=== PATIENT | male | born 1960 | race Caucasian/White ===

== ENCOUNTER 2019-11-26 07:42 | Day surgery (SDC) | payer OTHER, SELFPAY ==
[2019-11-25 09:08] VITALS: BMI 25.5
[2019-11-26 08:01] VITALS: BP 154/108; PULSE 88; RESP 20; TEMP 36.4; O2SAT 100
--- NOTE | 2019-11-26 08:24 | ANES.PREANES ---
Pre-Anesthetic Assessment Pre-Anesthetic Assessment: Height/Weight: Height 1.73 m Weight 76.204 kg Temp Pulse Resp BP Pulse Ox 97.5 F L 88 20 H 154/108 100 11/26/19 08:01 11/26/19 08:01 11/26/19 08:01 11/26/19 08:01 11/26/19 08:01 Proposed Procedure: Operation Date: 11/26/19 08:30 Proposed Procedures p Colonoscopy(Not Applicable) - Robert Callaway MD Familial anesthetic complications: none Was Beta Alon taken within 24 hours: N/A Last intake: Intake Last Liquid Date 11/25/19 Last Liquid Time 19:00 Last Solid Date 11/24/19 Last Solid Time 18:00 Social: Social History: No alcohol and No tobacco Exam: Pre-Anes Outpt Exam: clear to auscultation bilaterally and regular rate & rhythm Airway: Submandibular: WNL Cervical ROM: WNL MP: 2 Pulmonary: Pulmonary: None reported CV/HEM: CV/HEM: CHF and HTN : : None reported Hepatic: Hepatic: None reported GI: GI: None reported Metabolic: Metabolic: None reported Musc/skel: Musc/skel: Lower Back Pain and None reported Comments: parkinsons disease Neuropsych: Neuropsych: None reported Anesthetic Plan: ASA status: III Anesthesia: Anesthesia Evaluation and MAC Risk of > 500 ml blood loss (7ml/kg in children): No PFSH Anesthesia PFSH: Social History (Updated 11/25/19 @ 09:04 by Kenyatta Yoder RN) Smoking and tobacco status: former smoker Alcohol intake: current Alcohol intake frequency: few times a week Substance/Drug Use: never Data Anesthesia Cardiac Studies: No Data to Display
[2019-11-26] MEDS: sodium chloride 0.9% 1,000 ML 30 ML (08:26)
--- NOTE | 2019-11-26 08:26 | PM.HPUD ---
H&P update H&P Update: DATE OF SURGERY/PROCEDURE: 11/26/19 DATE H&P PERFORMED: 11/16/19 H&P UPDATE INFORMATION: H&P completed within last 30 days and No changes to prior documentation PLANNED PROCEDURE: Operation Date: 11/26/19 08:30 Proposed Procedures p Colonoscopy(Not Applicable) - Robert Callaway MD Full H&P Perinent History: Social History: Social History Smoking and tobacco status: former smoker Alcohol intake: current Alcohol intake frequency: few times a week Substance/Drug Use: never
[2019-11-26 08:53] VITALS: BP 108/75; PULSE 68; RESP 18; TEMP 36.2; O2SAT 100
--- NOTE | 2019-11-26 08:57 | ANE.PACU ---
 Inpatient post-anesthesia follow up: Airway intact: Yes Vital signs: Temperature 97.5 F Pulse Rate 88 Respiratory Rate 20 Blood Pressure 154/108 Pulse Oximetry 100 Oxygen Delivery Me thod Oxygen Flow Rate Fraction of Inspir ed Oxygen Hydration adequate: Yes Nausea and vomiting: No Pain level: Other (0/10) Mental status: Baseline
[2019-11-26 09:09] VITALS: BP 109/75; PULSE 68; RESP 18; O2SAT 100
== END 2019-11-26 09:23 | disposition home or self-care (01) ==
PROVIDERS: Family Provider Physician Assistant; PCP Physician Assistant; Visit Provider Surgery
PROC: 0DJD8ZZ Inspection of Lower Intestinal Tract, Via Natural or Artificial Opening Endoscopic (ICD-10-PCS; CPT 45378; principal; 2019-11-26 08:30)
DX: K92.1 Melena (principal); Z86.010 Personal history of colon polyps; K64.8 Other hemorrhoids; D12.3 Benign neoplasm of transverse colon; Z87.891 Personal history of nicotine dependence; I11.0 Hypertensive heart disease with heart failure; I50.9 Heart failure, unspecified
CPT/HCPCS: 12345; 45385; 88305; J2001; J2704; J7030

== ENCOUNTER → 2020-01-11 07:58 | Outpatient (BNVA) | payer OTHER, SELFPAY | PROVIDERS: Family Provider Physician Assistant; PCP Physician Assistant; Visit Provider Specialist | DX: G20 Parkinson's disease (principal); Z87.891 Personal history of nicotine dependence | CPT/HCPCS: 99214 ==

== ENCOUNTER 2020-04-14 07:58 | Outpatient (CLI) | payer OTHER, SELFPAY ==
--- NOTE | 2020-04-14 | MR_ITS ---
MRI for Stimulator placement. No images were submitted for evaluation. [facility]
[2020-04-14 08:42] LABS: Blood Urea Nitrogen 14 mg/dL (8-23); Glomerular Filtration Rate 85.8 mL/min (90-130)
== END 2020-04-14 07:59 | disposition home or self-care (01) ==
PROVIDERS: PCP Physician Assistant; Visit Provider Specialist
DX: G20 Parkinson's disease (principal)
CPT/HCPCS: 70553; 82565; 84520; A9579

== ENCOUNTER 2020-04-18 14:33 | Inpatient (IN) | payer OTHER, SELFPAY ==
[2020-04-15 13:55] VITALS: BMI 25.8
[2020-04-18] VITALS (79 sets, daily range): BP systolic 103–192; BP diastolic 56–148; PULSE 71–241; RESP 11–30; TEMP 36.3–36.9; O2SAT 91–100
[2020-04-18] MEDS: sodium chloride 0.9% 1,000 ML 30 ML IV (06:35)
--- NOTE | 2020-04-18 06:40 | ANES.PREANE2 ---
Pre-Anesthetic Assessment Pre-Anesthetic Assessment: Height/Weight: Height 1.75 m Weight 79.379 kg Temp Pulse Resp BP Pulse Ox 98.4 F 88 20 H 168/100 96 04/18/20 06:30 04/18/20 06:30 04/18/20 06:30 04/18/20 06:30 04/18/20 06:30 Proposed Procedure: Operation Date: 04/18/20 07:00 Proposed Procedures p Deep Brain Stimulator Stage 1 Left(Left) - Jeovany Estrada MD Operation Date: 04/18/20 07:20 Proposed Procedures p Left, probable bilateral, CT/MRI guided stereotactic placement of deep brain stimulation electrode arrays via sully holes, with microelectrode recordings, Stage 1 (60355) G20(Not Applicable) - Jeovany Estrada MD Last intake: Intake Last Liquid Date 04/17/20 Last Liquid Time 20:30 Last Solid Date 04/17/20 Last Solid Time 18:00 Social: Social History: Tobacco (quit 2013) and No alcohol Exam: Pre-Anes Outpt Exam: alert, oriented x 3, clear to auscultation bilaterally and regular rate & rhythm Airway: Submandibular: WNL Cervical ROM: WNL MP: 2 Dentition: Other (teeth ok) History/ROS: No significant history except as noted Pulmonary: Pulmonary: None reported CV/HEM: CV/HEM: HTN : : None reported Hepatic: Hepatic: None reported GI: GI: None reported Metabolic: Metabolic: Hyperlipidemia Musc/skel: Musc/skel: None reported Neuropsych: Comments: parkinsons dz Anesthetic Plan: ASA status: 3 Anesthesia: Anesthesia Evaluation and MAC Risk of > 500 ml blood loss (7ml/kg in children): No Meds/Allergies Current Medications: Current Medications Generic Name Dose Route Start Last Admin Trade Name Freq PRN Reason Stop Dose Admin Sodium Chloride 1,000 mls @ 30 ml s/hr 04/18/20 06:00 04/18/20 06:35 Sodium Chloride 0.9% IV 04/19/20 05:59 30 mls/hr .Q24H KIAN Administration PFSH Anesthesia PFSH: Medical History Colon polyps Hypercholesterolemia Hypertension Parkinsons disease Family History Grandmother Diabetes Other Cancer Denies family history of CAD (coronary artery disease) Hypertension Stroke Social History Smoking and tobacco status: former smoker Quit status (tobacco): has quit using tobacco Year quit tobacco: 2013 Alcohol intake: current Alcohol intake frequency: 0-2 Drinks per Day Alcohol type: wine Marital status: Current occupational status: employed History of recent travel: No Data Anesthesia Cardiac Studies: No Data to Display
--- NOTE | 2020-04-18 06:53 | CT_ITS ---
WS: [id number] CT head with and without contrast. Imaging is provided for Dr. Estrada prior to deep brain stimulator electrode placement.
--- NOTE | 2020-04-18 06:56 | W.PM.OPSUD ---
Surgery/Procedure H&P Update DATE OF PROCEDURE: April 18, 2020 DATE H&P PERFORMED: 03/28/20 H&P UPDATE INFORMATION: I have reviewed H&P completed within last 30 days and H&P to be scanned into chart PREOP DIAGNOSIS: Parkinsons disease PRIMARY INDICATION FOR PROCEDURE: Tremor/dyskinesias PLANNED PROCEDURE: Operation Date: 04/18/20 07:00 Proposed Procedures Deep Brain Stimulator Stage 1 - Jeovany Estrada MD Operation Date: 04/18/20 07:20 Proposed Procedures Left, probable bilateral, CT/MRI guided stereotactic placement of deep brain stimulation electrode arrays via sully holes, with microelectrode recordings, Stage 1 (58800) G20(Not Applicable) - Jeovany Estrada MD
[2020-04-18] MEDS: vancomycin 1,000 MG in sodium chloride 0.9% 250 ML 250 MG IV (07:13)
--- NOTE | 2020-04-18 08:01 | P.OP_ITS ---
Brief Operative Note: Date of procedure: 04/18/20 Pre-op diagnosis: Parkinson's disease Post-op diagnosis: same Procedure Done: Bilateral DBS electrode placements via burrholes, with ANUP. (Stage 1) Surgeon: Jeovany Estrada Estimated blood loss (mL): 5 Complications: None Post-op Plan: ICU Condition: stable Disposition: ICU Coding Level of Care Code Acute Command And Control Systems Integrator for Spencer Kerr
[2020-04-18] MEDS: iohexol 300 mg/mL 100 mL Btl IV (08:06)
--- NOTE | 2020-04-18 08:44 | SUR.OPER ---
Family Notified Of Patient's Status Via Phone.
[2020-04-18] MEDS: thrombin 5,000 unit SDV 5000 UNIT XX (09:14)
--- NOTE | 2020-04-18 09:43 | SUR.OPER ---
Family Notified Of Patient's Status Via Phone.
--- NOTE | 2020-04-18 10:54 | SUR.OPER ---
Family Notified Of Patient's Status Via Phone.
--- NOTE | 2020-04-18 12:31 | SUR.OPER ---
LATE ENTRY 04/18/20 1145 Family Notified Of Patient's Status Via Phone.
--- NOTE | 2020-04-18 12:55 | SUR.OPER ---
Family Notified Of Patient's Status Via Phone.
--- NOTE | 2020-04-18 13:27 | SUR.OPER ---
THE LEFT LEAD HAS TWO TIES, THE RIGHT LEAD HAS ONE TIE.
[2020-04-18] MEDS: neomycin-poly-bacitracin oint 28 gm 1 APPLIC TOPICAL (13:50)
--- NOTE | 2020-04-18 14:03 | CTR_ITS ---
PROCEDURE INFORMATION: Exam: CT Head Without Contrast Exam date and time: 04/18/2020 3:17 PM Age: 59 years old Clinical indication: Device placement; Neuropacemaker (e. G. Brain); Additional info: Postop TECHNIQUE: Imaging protocol: Computed tomography of the head without contrast. Radiation optimization: All CT scans at this facility use at least one of these dose optimization techniques: automated exposure control; mA and/or kV adjustment per patient size (includes targeted exams where dose is matched to clinical indication); or iterative reconstruction. COMPARISON: No relevant prior studies available. RADIATION DOSE METRICS: Total DLP (mGy-cm): 856.43 FINDINGS: Tubes, catheters and devices: Bilateral deep brain stimulators extending into the thalami bilaterally. No acute postoperative complication is evident. Brain: Postoperative pneumocephalus is noted. No acute parenchymal hemorrhage is seen. No subarachnoid hemorrhage or subdural hematoma identified. No mass effect or midline shift is seen. Ventricles: The ventricles are normal in size and configuration. Bones/joints: Unremarkable. No acute fracture. Sinuses: The visualized sinuses are unremarkable. Mastoid air cells: There is no mastoid effusion detected. CT/CT head wo con* 64220 IMPRESSION: 1. Recent placement of bilateral deep brain stimulators, with no acute complication evident. 2. Postoperative pneumocephalus. Radiation Dose CTDIVOL = (mGy): DLP = 856.43 (mGy-cm)
[2020-04-18] MEDS: HYDROcodone-acetaminophen 5-325 mg Tablet PO (15:32)
[2020-04-18] MEDS: lactated ringers 1,000 ML 90 ML IV (15:33)
--- NOTE | 2020-04-18 15:49 | P.OP_ITS ---
Operative Report Date of procedure: April 18, 2020 Pre-op Diagnosis: parkinsons disease Post-op diagnosis: same Procedure Done: Bilateral CT/MRI guided stereotactic placement of deep brain stimulation electrode arrays via bur holes, with microelectrode recordings. Implants: Medtronic [id number], 40 cm lead (x2) Specimens removed/disposition: None. Pathology: none sent Surgeon: Jeovany Estrada Anesthesia: MAC Estimated blood loss (mL): 5 IV fluids (mL): 1,800 Complications: None. Condition: stable Disposition: ICU Brief History: The patient is a 59-year-old male with Parkinson's disease. He exhibited progressive symptoms, including tremor, in spite of aggressive medical management. He was referred by his managing neurologist for consideration of deep brain stimulation therapy. After review of the diagnostic and treatment options with the risks/potential benefits/rationale for each, he requested to proceed with stereotactic placement of bilateral subthalamic nucleus deep brain stimulation electrode arrays. Procedure: After routine preoperative evaluation and informed consent were obtained, the patient was fit in the [email or web address] model G stereotactic head frame and transported to the Radiology Department. A postcontrast CT scan of the head was performed utilizing a stereotactic localization protocol. The CT images were merged with the preoperative brain MRI. Utilizing the Cream.HR workstation, bilateral subthalamic nucleus targets were chosen. Approach trajectories were planned to minimize the risk of ventricular entry or vascular injury during lead placements. The patient was transported to the surgical suite, and positioned supine on the operating table. The operating table was adjusted to a modified beach chair position. The head was placed in a comfortable position and secured to the table utilizing the Lopez adapter, which was attached to the stereotactic head frame. Hair clippers were utilized on the scalp, which was then scrubbed with Betadine and prepped with DuraPrep. Modified sterile draping was utilized to preserve a sterile field, without limiting patient upper extremity movements or the ability to perform neurologic assessments during the procedure. Anesthesia personnel monitored the patient and maintained minimal sedation during the procedure. The stereotactic arc/ring/frame components were assembled, target coordinates were set. The device was secured to the [facility] head frame. The planned left frontal scalp entry site was marked with a sterile skin marker. The area was infiltrated with 1% lidocaine with epinephrine. An incision was made and carried down to the pericranium. Ra clips were applied. A self-retaining retractor was placed. The [employer] Sunny high- speed drill and an Acra-Cut supervisor facepiece line were utilized to create a 14 mm sully hole. The dura was coagulated at the base of the sully hole. A Medtronic Stimloc sully hole ring was placed and secured with 2 screws. A cruciate dural incision was made and the dural leaflets were coagulated with the bipolar electrocautery. Hemostasis was ensured. The microdrive system was assembled and affixed to the stereotactic frame. The guide tube/reducing sleeve and Stylet were placed. The microelectrode array was then positioned within the electrode drive system and through the guide tube/reducing sleeve. The array was advanced toward the target site, with intermittent microelectrode recordings obtained and patient testing performed. The microelectrode array was advanced past the target site, and recordings were obtained to further verify appropriate localization. A suboptimal interval of STN activity was identified with micro electrode recordings. The microelectrode array was removed and repositioned 2 mm medially. The microelectrode was driven to the target depth, with intermitte nt microelectrode recordings obtained. An acceptable interval of STN activity was identified with microelectrode recordings. Target localization was felt to be accurate. The microelectrode array was removed. The Medtronic 3389S 40 cm lead was measured, and the stop was secured at the desired position. The business analytics director sleeve was removed from the guide tube, and the lead was advanced to the target site without incident. The lead extension was connected to the lead and intraoperative stimulation was initiated with the assistance of the Medtronic business representative. The patient was also monitored closely by Anesthesia personnel, with no adverse effect on vital signs observed. His status was monitored during various neurologic tests, and his motor skills were assessed. Extraocular movements, speech, cognition and verbalization were evaluated. Stimulation at the chosen site resulted in near complete resolution of tremor, and improvement in bradykinesia/rigidity and general upper extremity function. The patient tolerated stimulation to 5 V with no adverse effects. Marked improvement in upper extremity function was noted at less than 3 V stimulation. The guide tube was carefully withdrawn to a point allowing visualization of the lead at the sully hole entry site. The Medtronic Stimloc Sully Hole Cover locking cap was advanced into the sully hole ring and secured. The locking mechanism was closed to anchor the lead at the sully hole entry site. The lead was marked with a sterile marker at the locking cap-lead interface. The lead stylet was removed. The guide tube and drive components were removed as necessary to provide adequate access to the sully hole site. The lead was placed within the slot in the sully hole ring and secured with the final component of the Stimloc device. A loop of the lead was placed about the sully hole site. The lead tail was placed in a protected location while the contralateral DBS lead was placed. Attention was then turned to the right side. Stereotactic component coordinates were adjusted to target the right subthalamic nucleus, with a trajectory that avoided major vasculature, sulci, and the lateral ventricle. A scalp incision was made on the right side, after infiltration with 1% Xylocaine with epinephrine. Ra clips were applied, and a self-retaining retractor was placed. A sully hole was fashioned with the Acra-Cut supervisor facepiece line and the [employer] Sunny high-speed drill. The sully hole ring was placed and secured with 2 screws. A cruciate dural incision was fashioned with a #11 blade, and the dural leaflets were coagulated with the bipolar electrocautery. The microdrive system was assembled and secured to the stereotactic frame. The guide tube/reducing sleeve and Stylet were placed. The microelectrode array was positioned within the electrode drive system and through the guide tube/reducing sleeve. The array was advanced toward the target site, with intermittent microelectrode recordings obtained and patient testing performed. The microelectrode array was advanced past the target site, and recordings were obtained to further verify appropriate localization. Target localization was felt to be acceptable. The microelectrode array was removed. A Medtronic 3389S 40 cm lead was measured, and the stop was secured at the desired position. The business analytics director sleeve was removed from the guide tube, and the lead was advanced to the target site without incident. The lead extension was connected to the lead, and intraoperative stimulation was initiated with the assistance of the Medtronic representatives. The patient was monitored by Anesthesia personnel for changes in vital signs. Neurologic and functional testing was performed. Extraocular movements, speech, cognition and verbalization were evaluated. Stimulation at the chosen site again resulted in tremor resolution, and improvement in bradykinesia/rigidity and general upper extremity function. The patient tolerated stimulation to 5 V without significant adverse effects. Decreased tremor/rigidity/bradykinesia and a general improvement in upper extremity function were noted at less than 3 V stimulation. The guide tube was carefully withdrawn to a point allowing vis ualization of the lead at the sully hole entry site. The Medtronic Stimloc Sully Hole Cover locking cap was advanced into the sully hole ring and secured. The locking mechanism was closed to anchor the lead at the sully hole entry site. The lead was marked with a sterile marker at the lead/sully hole ring interface. The lead stylet was removed. The guide tube and drive components were removed as necessary to provide adequate access to the sully hole site. The lead was placed within the slot in the sully hole ring and secured with the third component of the Stimloc [place] Hole cover device. A subgaleal pocket was fashioned extending from the skin incision site into the posterior temporal area behind the right ear. The tunneling tool was utilized to pass the left sided lead tail to the right-sided scalp incision. A bullet protector was placed over the exposed end of each lead. The bullet protector on the left was marked with a second silk tie to allow identification of left versus right at the time of generator placement. The bullet protectors and lead tails were advanced into the subgaleal pocket to allow ease of access at the time of Stage II pulse generator implantation and lead extension connection. A loose coil of each lead tail was fashioned around their respective sully hole covers. Both incision sites were copiously irrigated with sterile saline and antibiotic irrigation. Hemostasis was ensured with the bipolar electrocautery and thrombin-soaked Gelfoam. Scalp incision closures were performed with 2-0 Vicryl Plus simple interrupted closure of the galea. Final skin closure was performed at both scalp incision sites utilizing 3-0 Nylon in a running locking pattern. Antibiotic ointment was placed along the suture lines. Sterile dressing were applied, followed by a Kerlix head wrap. The patient was released from the stereotactic head frame and transported to the ICU for postoperative monitoring and management. The patient tolerated the procedure well. All sponge, needle, and instrument counts were correct at the completion of the procedure.
--- NOTE | 2020-04-18 15:59 | PC.NURSE ---
PASSCODE 2361, ESTABLISHED WITH CIPRIANO
--- NOTE | 2020-04-18 17:08 | PM.PN ---
Subjective Subjective: Interval history: Mild headache. Vitals/I&O/Wt Last Vital Signs Temp 98.2 F 04/18/20 16:02 Pulse 76 04/18/20 16:02 Resp 18 04/18/20 16:02 BP 160/74 04/18/20 16:02 Pulse Ox 96 04/18/20 16:02 04/18/20 04/18/20 04/18/20 06:59 14:59 22:59 Intake Total 1350 / 1350 Balance 1350 / 1350 Physical Exam Const: COMMON NORMALS: no acute distress and alert GENERAL APPEARANCE: cooperative and comfortable Eye: COMMON NORMALS: EOMs intact bilaterally ALIGNMENT: Yes alignment normal Neck/C-Spine: COMMON NORMALS: supple Resp: COMMON NORMALS: normal respiratory effort EFFORT & INSPECTION: Yes able to speak in complete sentences and No tachypneic Extremity: COMMON NORMALS: no clubbing, cyanosis or edema Neuro: SENSORIUM/ORIENTATION: Yes alert SPEECH: speech normal MOTOR EXAM: 5/5 motor strength present throughout (ESTEVES well) and Tremors during motor activity present Psych: COMMON NORMALS: speech normal APPEARANCE: Yes grossly normal ATTITUDE: Yes calm and Yes engaged ACTIVITY/MOTOR BEHAVIOR: Yes appropriate eye contact SPEECH: Yes normal speech MOOD & AFFECT: Yes euthymic mood MEMORY/COGNITION: Yes memory grossly intact INSIGHT: Good insight present (Psych) JUDGEMENT: Good judgement present (Psych) Skin: WOUNDS: Yes surgical site (scalp dressing clean/dry/intact.) Data CT Head: Radiologist's impression: 1. Recent placement of bilateral deep brain stimulators, with no acute complication evident. 2. Postoperative pneumocephalus. A&P Assessment and plan (1) Parkinson's Disease: Patient is doing well after CT/MRI guided stereotactic placement of bilateral subthalamic nucleus deep brain stimulation electrode arrays, with intraoperative microelectrode recordings. Plan overnight monitoring in the ICU. Anticipate discharge home tomorrow, with return to the OR in 1 week for Stage II placement of subcutaneous programmable pulse generator. Status: Acute (2) Status post deep brain stimulator placement: Status: Acute Attestations Medical Necessity Statement*: Patient is appropriate for in-hospital monitoring and management after placement of deep brain stimulation electrode arrays earlier today. Time Spent in Patient Care: Postop global Coding Level of Care Code Acute Construction Coordinator for g Fwd Diagnoses Parkinson's Disease G20 Status post deep brain stimulator placement Z96.89
[2020-04-18] MEDS: docusate sodium 100 mg Capsule PO (18:00)
[2020-04-18] MEDS: carbidopa-levodopa 25-100mg Tablet 1 EACH PO ×2 (18:00→20:08)
[2020-04-18] MEDS: acetaminophen 325 mg Tablet 650 MG PO (20:12)
[2020-04-19] VITALS (33 sets, daily range): BP systolic 107–198; BP diastolic 64–99; PULSE 73–98; RESP 16–29; TEMP 36.3–36.6; O2SAT 89–95
[2020-04-19] MEDS: acetaminophen 325 mg Tablet 650 MG PO ×3 (01:42→12:11)
[2020-04-19] MEDS: lactated ringers 1,000 ML 90 ML IV (02:27)
[2020-04-19] MEDS: carbidopa-levodopa 25-100mg Tablet 1 EACH PO ×2 (08:37→12:11)
[2020-04-19] MEDS: docusate sodium 100 mg Capsule PO (08:37)
[2020-04-19] MEDS: atorvastatin 40 mg Tablet PO (08:37)
[2020-04-19] MEDS: lisinopril 5 mg Tablet PO (08:37)
--- NOTE | 2020-04-19 13:31 | PC.NURSE ---
DISCHARGE ASSESSMENT COMPLETED; IV REMOVED; PT DRESSED; DISCHARGE INSTRUCTIONS REVIEWED WITH PT; PT TAKEN OUT TO AWAITING RIDE HOME
--- NOTE | 2020-04-19 16:44 | PM.DCS ---
Discharge Providers Date of Admission: 04/18/20 14:33 Date of Discharge: April 19, 2020 Attending Provider at Admission: Jeovany Weber MD Attending Provider at Discharge: Jeovany Weber MD Primary Care Provider: Africa Hendrix Diagnoses at Discharge Discharge Diagnosis (1) Parkinson's Disease: Status: Acute (2) Status post deep brain stimulator placement: Status: Acute Reason for Visit Reason for Visit: Brief History: The patient is a 59-year-old male with Parkinson's disease. He exhibited progressive symptoms, including tremor, in spite of aggressive medical management. He was referred by his managing neurologist for consideration of deep brain stimulation therapy. After review of the diagnostic and treatment options with the risks/potential benefits/rationale for each, he requested to proceed with stereotactic placement of bilateral subthalamic nucleus deep brain stimulation electrode arrays. Hospital Course Hospital Course: The patient underwent sully holes and bilateral stereotactic placements of CT/MRI guided subthalamic nucleus deep brain stimulation electrode arrays on 04/18/2020. He tolerated the procedure well. A postoperative head CT confirmed lead placements, and the absence of intracranial hemorrhage. He was monitored in the intensive care unit overnight. He completed perioperative intravenous antibiotic doses. He was ambulatory, voiding, and tolerating diet prior to discharge home on postoperative day #1. Physical Exam Const: COMMON NORMALS: no acute distress and alert GENERAL APPEARANCE: cooperative and comfortable Eye: COMMON NORMALS: EOMs intact bilaterally ALIGNMENT: Yes alignment normal Neck/C-Spine: COMMON NORMALS: supple Resp: COMMON NORMALS: normal respiratory effort EFFORT & INSPECTION: Yes able to speak in complete sentences and No tachypneic Extremity: COMMON NORMALS: no clubbing, cyanosis or edema Neuro: SENSORIUM/ORIENTATION: Yes alert SPEECH: speech normal MOTOR EXAM: 5/5 motor strength present throughout (ESTEVES well) and Tremors during motor activity present Psych: COMMON NORMALS: speech normal APPEARANCE: Yes grossly normal ATTITUDE: Yes calm and Yes engaged ACTIVITY/MOTOR BEHAVIOR: Yes appropriate eye contact SPEECH: Yes normal speech MOOD & AFFECT: Yes euthymic mood MEMORY/COGNITION: Yes memory grossly intact INSIGHT: Good insight present (Psych) JUDGEMENT: Good judgement present (Psych) Skin: WOUNDS: Yes surgical site (scalp dressings clean/dry/intact. Sutures present.) Discharge Data Data Completed and Pending: Completed Studies During Hospitalization Category Date Time Status CT head w con 704 60 Routine Cat Scan 04/18/20 06:[address] head wo con* 7 0450 Routine Cat Scan 04/18/20 14:03 Completed Imaging^: CT Head: Radiologist's impression: 1. Recent placement of bilateral deep brain stimulators, with no acute complication evident. 2. Postoperative pneumocephalus. Procedures Performed: Sully holes and stereotactic placement of CT/MRI guided deep brain stimulation electrode arrays, with microelectrode recordings. Intravenous antibiotics. ICU monitoring. CT head. Vitals: Last Vital Signs Temp 97.7 F 04/19/20 13:10 Pulse 90 04/19/20 13:10 Resp 23 H 04/19/20 13:10 BP 121/70 04/19/20 13:10 Pulse Ox 94 04/19/20 13:10 Discharge Plan Discharge Patient Disposition: Home, Self-Care Condition: Stable Prescriptions: [place] 7.5-325 mg tablet 1 tab PO Q4H PRN (Reason: pain) Qty: 30 RF: 0 Continued simvastatin 80 mg tablet 80 mg PO DAILY RF: 0 amantadine HCl 100 mg Capsule 100 mg PO BID RF: 0 lisinopril 5 mg tablet 5 mg PO DAILY RF: 0 carbidopa-levodopa [Sinemet] 25-100 mg Tablet 1 tab PO QID RF: 0 Discharge Orders: Discharge Order (Routine); Ordered 04/19/20 Ordered By: Jeovany Weber Referrals: Jeovany Weber MD [Physician] - 2 weeks (DR WEBER'S OFFICE WILL CALL YOU WITH AN APPT. ) Discharge Diet: Regular Discharge Activity: Limit activity as instructed Activity Restrictions/Additional Instructions: Activity - No driving until office followup visit - No lifting/pushing/pulling over 10 pounds - Avoid twisting or bending - Walking is encouraged - Home exercise per physical therapist - You may engage in sexual intercourse at any time as long as it is comfortable for you - Check with your doctor before returning to work. Notify your doctor if you develop: - temperature of 101.5 degrees F. or higher - redness or swelling of the incision - Foul drainage - increasing pain - increasing numbness or tingling in the arms or legs - New or increasing problems with vision, balance, memory, speaking, nausea or vomiting Hygiene: - Showering is okay - No tub baths or soaking Other: Remove outer bandage 3 days after surgery. If you have paper strips, leaving in place until they fall off on their own. If you have stitches, keep your incision dry until the stitches are removed. Brain surgery: You may wear hats, scarves or turbans at any time. Your doctor's office is available to answer any questions from 7 AM to 5:00 PM, Saturday through at [phone]. After hours, go to the emergency room at [facility] or call 911 for assistance. Discharge Date/Time: 04/19/20 13:00 Discharge Attestations Time Spent in Discharge Care*: other (postop global) Quality Metrics Clinical Quality Measures During this hospital stay, did patient experience: None Coding Level of Care Code Acute Aircraft Communicator for Spencer Fwd Exam Comprehensive Diagnoses Parkinson's Disease G20 Status post deep brain stimulator placement Z96.89 Comment postop global
--- NOTE | 2020-04-25 06:58 | W.PM.OPSUD ---
Surgery/Procedure H&P Update DATE OF PROCEDURE: April 25, 2020 DATE H&P PERFORMED: 03/28/20 H&P UPDATE INFORMATION: I have reviewed H&P completed within last 30 days and H&P to be scanned into chart PREOP DIAGNOSIS: parkinsons disease PRIMARY INDICATION FOR PROCEDURE: Tremor PLANNED PROCEDURE: Operation Date: 04/25/20 07:20 Proposed Procedures Placement of subcutaneous programmable pulse generator, with connection to deep brain stimulation electrode arrays, Stage II - Jeovany Estrada MD
--- NOTE | 2020-04-25 07:16 | P.OP_ITS ---
Brief Operative Note: Date of procedure: 04/25/20 Pre-op diagnosis: Parkinson's disease Post-op diagnosis: same Procedure Done: Placement of subcutaneous programmable pulse generator with connection to deep brain stimulation electrode arrays. Surgeon: Jeovany Estrada Estimated blood loss (mL): 5 Complications: - Post-op Plan: PACU, then home per Ambulatory Surgery protocol. Condition: stable Disposition: PACU Coding Level of Care Code Acute Preschool Principal for Spencer Kerr
== END 2020-04-19 13:00 | disposition home or self-care (01) | DRG 24 ==
LOC: ICU 14:33
PROVIDERS: Admitting Provider Specialist; PCP Physician Assistant; Visit Provider Specialist
PROC: 00H03MZ Insertion of Neurostimulator Lead into Brain, Percutaneous Approach (ICD-10-PCS; principal; 2020-04-18 07:00)
DX: G20 Parkinson's disease (principal); I10 Essential (primary) hypertension; E78.5 Hyperlipidemia, unspecified; Z87.891 Personal history of nicotine dependence
CPT/HCPCS: 12345; 70450; 70460; 96365; C1778; J0690; J1100; J2001; J2704; J3010; J3370; J3490; J3535; J7030; J7050; Q9967

== ENCOUNTER 2020-04-25 05:50 | Day surgery (SDC) | payer OTHER, SELFPAY ==
[2020-04-22 12:31] VITALS: BMI 26.6
[2020-04-25] VITALS (11 sets, daily range): BP systolic 92–127; BP diastolic 45–77; PULSE 83–96; RESP 12–22; TEMP 36.3–36.6; O2SAT 93–100
--- NOTE | 2020-04-25 06:16 | ANES.PREANE2 ---
Pre-Anesthetic Assessment Pre-Anesthetic Assessment: Height/Weight: Height 1.73 m Weight 79.379 kg Temp Pulse Resp BP Pulse Ox 97.8 F 86 18 127/77 98 04/25/20 06:08 04/25/20 06:08 04/25/20 06:08 04/25/20 06:08 04/25/20 06:08 Preop Diagnosis: parkinsons disease Proposed Procedure: Operation Date: 04/25/20 07:00 Proposed Procedures p Placement of subcutaneous pulse generator with connection of bilateral deep brain stimulation electrode arrays, Stage 2 [id number])G20(Not Applicable) - Jeovany Estrada MD Familial anesthetic complications: none Was Beta Alon taken within 24 hours: N/A Last intake: Intake Last Liquid Date 04/24/20 Last Liquid Time 21:00 Last Solid Date 04/17/20 Last Solid Time 21:00 Social: Social History: No alcohol Comment: former smoker Exam: Pre-Anes Outpt Exam: alert, oriented x 3, clear to auscultation bilaterally and regular rate & rhythm Airway: Cervical ROM: WNL MP: 2 Dentition: Full CV/HEM: CV/HEM: HTN Metabolic: Metabolic: Hyperlipidemia Neuropsych: Comments: parkinsons Anesthetic Plan: ASA status: 3 Anesthesia: General and Choice Risk of > 500 ml blood loss (7ml/kg in children): No Other Pertinent Information: Patient says he recently coughed up blood after his stage 1 surgery - this may possibly have been related to ETT/laryngoscopy. He's had no other history of this, and no lung problems He does have a dry cough (for 2 years) related to lisinopril. PFSH Anesthesia PFSH: Medical History Colon polyps Hypercholesterolemia Hypertension Parkinsons disease Family History Grandmother Diabetes Other Cancer Denies family history of CAD (coronary artery disease) Hypertension Stroke Social History Smoking and tobacco status: former smoker Quit status (tobacco): has quit using tobacco Year quit tobacco: 2013 Alcohol intake: current Alcohol intake frequency: 0-2 Drinks per Day Alcohol type: wine Marital status: Current occupational status: employed History of recent travel: No Data Anesthesia Cardiac Studies: No Data to Display
[2020-04-25] MEDS: sodium chloride 0.9% 1,000 ML 30 ML IV (06:25)
[2020-04-25] MEDS: vancomycin 1,000 MG in sodium chloride 0.9% 250 ML 250 MG IV (07:30)
--- NOTE | 2020-04-25 08:03 | SUR.OPER ---
attempted to contact via cellphone.
--- NOTE | 2020-04-25 08:27 | SUR.OPER ---
Patient's updated of surgical status.
[2020-04-25] MEDS: neomycin-poly-bacitracin oint 28 gm 1 APPLIC TOPICAL (09:03)
--- NOTE | 2020-04-25 09:49 | SUR.PHASEI ---
0932 PT TO PACU AWAKES TO VOICE FOLLOWS COMMANDS DRESSING TO HEAD KERLIX D/I AND RT CHEST OPSITE D/I PT HAS TEDS SCDS AND WARMER IN PLACE AND ON. 0940 PT AWAKE REQUESTS ICE CHIPS PLACED ON RA TRIAL.
--- NOTE | 2020-04-25 10:25 | SUR.PHASEI ---
0958 PT READY TO GO TO FLOOR REPORT CALLED TO FLOOR PT TO GO TO [facility], NO ORDERS ON CHART DR WEBER CALLED AND VERBAL ORDERS TO SEND PT TO OPS TO GO HOME, HE WILL CALL ORDERS LATER. [facility] NOTIFED, WALTER DIAL, AND 1010 REPORT TO OPS GIVEN PT AWAKE ALERT DENIES PAIN, DRESSING D/I PT REQUESTS COKE TO DRINK AND CRACKERS 1015 PT TO OPS HANDOFF AT BEDSIDE TO [facility] DIAL, PT GIVEN SODA TO SIP ON . VSS
--- NOTE | 2020-04-25 16:58 | P.OP_ITS ---
Operative Report Date of procedure: April 25, 2020 Pre-op Diagnosis: parkinsons disease Post-op diagnosis: same Procedure Done: Placement of subcutaneous programmable pulse generator with connection to bilateral deep brain stimulation electrode arrays. Implants: [employer] Activa PC model #96190 Medtronic 60 cm model #87047, 60 cm lead extensions (x2) Pathology: none sent Surgeon: Jeovany Estrada Anesthesia: General Estimated blood loss (mL): 5 IV fluids (mL): 1,300 Complications: - Condition: stable Disposition: PACU Brief History: The patient is a 59-year-old male with Parkinson's disease and medically refractory symptoms who was referred for evaluation of deep brain stimulation therapy. After review of the diagnostic and treatment options with the risks/potential benefits/rationale for each, he requested to proceed with bilateral subthalamic nucleus deep brain stimulator placements. Stereotactic electrode array placement, with microelectrode recordings, (Stage I) was performed on 04/18/2020. He returns today for Stage II pulse generator placement. Procedure: After routine preoperative evaluation and informed consent were obtained, the patient was taken to the Operating Room, and placed under general anesthesia by Anesthesia personnel. He was positioned supine on the operating table with the head rotated toward the left. Scalp preparation was performed with hair clippers. The right scalp, anterolateral neck and anterior chest were then prepped and draped in the usual fashion. A proposed transverse skin incision was marked in the right infraclavicular area. A second proposed incision was marked on the scalp in line with the palpable bullet protectors for the previously implanted deep brain stimulation lead tails. The proposed incision sites were infiltrated with 1% lidocaine with epinephrine. The right parietotemporal scalp incision was made with a sharp knife and carried down into the subcutaneous tissues. A self-retaining retractor was placed. The bullet tip protector for each lead tail was identified and delivered into the incision site. Gentle traction allowed leads to be extended to the point that the bullet tip protectors could be removed. Distal filament extension beyond contact 3 was noted on the right lead. The distracted filament was modified to allow the lead tail to adequately advance into the lead extension. The right infraclavicular incision was made at the previously injected site. A subcutaneous pocket was fashioned with a combination of blunt dissection and electrocautery. The subcutaneous tunneling tool was then utilized to create a subcutaneous passage between the scalp incision and the infraclavicular incision. The 60 centimeter lead extensions were passed through the subcutaneous tunnel between the 2 incision sites without incident. The protective boots were advanced over the DBS lead tails. The lead tails were then advanced into the connector sites on the lead extensions. The set screws were tightened with a torque wrench and verified to be engaging the connection sites appropriately. The connection appeared to be secure. A contact 3 lead fault was noted on the right. Attempts to correct the fault were unsuccessful. The boot was advanced over the connection sites and silk ties were applied. The distal connectors were advanced into the [employer] Activa PC pulse generator and a lead test was performed. The contact 3 right lead fault persisted on final device interrogation. The incision sites were copiously irrigated with sterile saline and antibiotic irrigation. The pulse generator was placed within the subcutaneous pocket and secured with a silk anchor suture placed through the suture loop on the device. Excess lead was coiled deep to the device prior to securing the device in position and proceeding with wound closure. Closure was performed in multiple layers with 2-0 Vicryl Plus simple interrupted closure of the galea at the scalp incision site and deep dermis at the infraclavicular site. Final skin closure was performed at the scalp site with 4-0 nylon in a running locking pattern. Final closure at the infraclavicular site was performed with 3-0 Vicryl Plus in a running subcuticular pattern. Steri-Strips were applied at the infraclavicular incision site, with antibiotic ointment applied along the scalp suture line. Sterile dressings were placed at both sites. The patient tolerated the procedure well. All sponge, needle and instrument counts were correct at the completion of the procedure. He was awakened from general anesthesia, and transported to the PACU for routine postoperative monitoring and management.
== END 2020-04-25 12:15 | disposition home or self-care (01) ==
PROVIDERS: PCP Physician Assistant; Visit Provider Specialist
PROC: (CPT 61886; principal; 2020-04-25 07:00)
DX: G20 Parkinson's disease (principal)
CPT/HCPCS: 61886; 12345; C1767; J0690; J1100; J2001; J2250; J2370; J2405; J2704; J3010; J3370; J3490; J7030; J7050

== ENCOUNTER → 2020-05-09 08:59 | Outpatient (BNVA) | payer OTHER, SELFPAY | PROVIDERS: PCP Physician Assistant; Visit Provider Specialist | DX: G20 Parkinson's disease (principal); Z96.89 Presence of other specified functional implants | CPT/HCPCS: 95983; 99214 ==

== ENCOUNTER → 2020-06-01 07:52 | Outpatient (BNVA) | payer OTHER, SELFPAY | PROVIDERS: PCP Physician Assistant; Visit Provider Specialist | DX: G20 Parkinson's disease (principal); Z96.89 Presence of other specified functional implants; Z87.891 Personal history of nicotine dependence | CPT/HCPCS: 95983; 95984; 99213 ==

== ENCOUNTER → 2020-11-10 07:56 | Outpatient (BNVA) | payer OTHER, SELFPAY | PROVIDERS: PCP Physician Assistant; Visit Provider Specialist | DX: G20 Parkinson's disease (principal); Z96.82 Presence of neurostimulator; Z87.891 Personal history of nicotine dependence | CPT/HCPCS: 95983; 95984; 99214 ==

== ENCOUNTER → 2021-07-25 09:04 | Outpatient (BNVA) | payer OTHER, SELFPAY | PROVIDERS: PCP Physician Assistant; Visit Provider Specialist | DX: G20 Parkinson's disease (principal); R20.0 Anesthesia of skin; R20.2 Paresthesia of skin; M54.12 Radiculopathy, cervical region; Z96.82 Presence of neurostimulator; Z87.891 Personal history of nicotine dependence | CPT/HCPCS: 95983; 95984; 99214 ==

== ENCOUNTER 2021-08-14 09:42 | Outpatient (CLI) | payer OTHER, SELFPAY ==
--- NOTE | 2021-08-14 10:15 | CT_ITS ---
WS: [id number] CT CERVICAL SPINE HISTORY: R20.0 - Anesthesia of skin TECHNIQUE: Contiguous 2.5 mm axial imaging performed through the entire cervical spine. Sagittal and coronal reformats also performed. [facility] CT [facility] use at least one of these dose o ptimization techniques: automated exposure control; mA and/or kV adjustment per patient size (include s targeted exams where dose is matched to clinical indication); or iterative reconstruction. DLP: 1267.99 mGy.cm COMPARISON: None available. Normal posterior cervical alignment. Disc spaces are very slightly narrowed at C5-6 and C6-7. No frac tures. The brain stimulator electrodes enters through the parietal bones bilaterally and terminate ne ar the thalami. C2-C3: Normal. C3-C4: Mild osteophytic ridging. C4-C5: Mild annular disc bulge with a central disc protrusion and osteophytic ridging. Very minimal R IGHT foraminal narrowing. C5-C6: Moderate osteophytic ridging with a central disc protrusion. Mild central with moderate bilate ral foraminal stenosis. C6-C7: Diffuse osteophytic ridging with a shallow proximal LEFT foraminal disc protrusion. Mild centr al and bilateral foraminal stenosis. C7-T1: Normal. Soft tissues are normal. Lung apices are clear. CT/CT cervical spin wo con* [id number] IMPRESSION: 1. No cervical spine fracture. 2. Mild central with moderate bilateral foraminal stenosis at C5-6 due to oste ophytic bone disease. 3. Mild central and bilateral foraminal stenosis at C6-7 and mild RIGHT forami nal stenosis at C4-5. 4. No change in position of the bilateral deep brain stimulator electrodes.
== END 2021-08-14 09:43 | disposition home or self-care (01) ==
PROVIDERS: PCP Physician Assistant; Visit Provider Specialist
DX: R20.0 Anesthesia of skin (principal); R20.2 Paresthesia of skin
CPT/HCPCS: 72125

== ENCOUNTER 2023-06-29 11:44 | Outpatient (CLI) | payer OTHER, SELFPAY ==
--- NOTE | 2023-06-29 12:06 | XRR_ITS ---
PROCEDURE INFORMATION: Exam: XR Right Hip Exam date and time: 06/29/2023 12:07 PM Age: 62 years old Clinical indication: Injury or trauma; Fall; Other: N/a TECHNIQUE: Imaging protocol: Radiologic exam of the right hip. Views: 1 view hip with pelvis when performed. COMPARISON: No relevant prior studies available. FINDINGS: Bones/joints: No acute fracture or dislocation. No focal osteopenia. Mild superolateral hip joint space narrowing. Lower lumbar spine degenerative changes. Soft tissues: Unremarkable. XR/XR hip RT 2-3V wo/w pel* [id number] IMPRESSION: 1. No acute findings. 2. Mild right hip degenerative change.
== END 2023-06-29 11:45 | disposition home or self-care (01) ==
PROVIDERS: PCP Physician Assistant; Visit Provider Registered Nurse Neonatal Intensive Care
DX: M25.551 Pain in right hip (principal); W18.30XA Fall on same level, unspecified, initial encounter; Y93.89 Activity, other specified; Y92.89 Other specified places as the place of occurrence of the external cause; Y99.8 Other external cause status
CPT/HCPCS: 73502

== ENCOUNTER 2023-08-28 15:30 | Outpatient (CLI) | payer MEDICARE, OTHER, SELFPAY ==
--- NOTE | 2023-08-28 15:49 | CT_ITS ---
WS: [id number] NONCONTRAST CT RIGHT HIP TECHNIQUE: Noncontrast CT RIGHT hip with coronal and sagittal reformatted images. CLINICAL INFORMATION: RIGHT HIP PAIN COMPARISON: 06/29/2023 DLP: 389.[address] scans at [facility] use at least one of these dose optimization techniques: automated e xposure control; mA and/or kV adjustment per patient size (includes targeted exams where dose is matc hed to clinical indication); or iterative reconstruction. FINDINGS: Mild degenerative arthritis RIGHT hip with joint space narrowing. Mild hypertrophic changes about the acetabulum. Normal femoral head and neck. No evidence of avascular necrosis. No acute fractures. RIGHT pubic rami appear normal. Normal acetabulum. Proximal femoral shaft appears normal. IMPRESSION: 1. Mild degenerative arthritis RIGHT hip. No acute fractures.
--- NOTE | 2023-08-28 15:49 | CT_ITS ---
WS: [id number] CT LUMBAR SPINE TECHNIQUE: Noncontrast CT of the lumbar spine with coronal and sagittal reformatted images. CLINICAL INFORMATION: RIGHT HIP PAIN COMPARISON: None. DLP: 502.[address] scans at [facility] use at least one of these dose optimization techniques: automated e xposure control; mA and/or kV adjustment per patient size (includes targeted exams where dose is matc hed to clinical indication); or iterative reconstruction. FINDINGS: Mild lumbar curve. No acute compression. Mild disc bulging worse at L4-L5 and L5-S1. Partially visual ized disc osteophyte complex at T11-T12 with moderate to severe central canal stenosis. This is parti ally visualized at the edge of the [id number]. This be further evaluated with CT thoracic spine or MRI lumbar and thoracic spine T11-T12: Disc osteophyte complex with moderate to severe central canal stenosis and impingement subar ticular recess bilaterally. Moderate RIGHT and no significant LEFT foraminal narrowing. Mild facet ar thropathy. Spinal canal at this level measures 8 mm. T12-L1: Mild facet arthropathy. Spinal canal and foramen are patent. L1-L2: Mild annular bulging. Slight narrowing of the subarticular recess. Mild facet arthropathy. Mil d bilateral foraminal narrowing. L2-L3: Mild annular bulging. Mild narrowing of the subarticular recess bilaterally. Moderate facet ar thropathy. Foramen are patent. L3-L4: Mild annular bulging. Moderate facet arthropathy. Mild LEFT and no significant RIGHT foraminal narrowing. Small LEFT foraminal protrusion slightly impinges the exiting LEFT L3 nerve root. L4-L5: Disc bulging eccentric to the RIGHT with impingement RIGHT subarticular recess and traversing RIGHT L5 nerve root. Mild central canal stenosis. Moderate to advanced facet arthropathy. Moderate RI GHT and no significant LEFT foraminal narrowing. L5-S1: Disc osteophyte complex with endplate ridging. Slight effacement of ventral thecal sac. Mild f acet arthropathy. Moderate RIGHT greater than LEFT foraminal narrowing. Visualized pelvic bony structures: Normal. Paravertebral soft tissues: Normal. IMPRESSION partially: 1. Partially evaluated disc osteophyte protrusion at T11-T12 with moderate to severe central canal s tenosis and impingement subarticular recess bilaterally. This is at the edge of the field of view. Re commend further evaluation with CT thoracic spine or MRI thoracic and lumbar spine. 2. Moderate RIGHT T11-T12 foraminal narrowing. 3. RIGHT eccentric disc bulging L4-5 impinges the traversing RIGHT L5 nerve root. Moderate RIGHT L4- 5 foraminal narrowing. 4. Disc osteophytic ridging L5-S1 with moderate RIGHT greater than LEFT bony foraminal narrowing. 5. Small LEFT foraminal protrusion L3-4 slightly impinges the exiting LEFT L3 nerve root. 6. Moderate to advanced facet arthropathy L3-L5.
== END 2023-08-28 15:31 | disposition home or self-care (01) ==
LOC: RAD 15:31
PROVIDERS: PCP Physician Assistant; Visit Provider Physician Assistant
DX: M16.11 Unilateral primary osteoarthritis, right hip (principal); M48.04 Spinal stenosis, thoracic region; M25.78 Osteophyte, vertebrae; M47.816 Spondylosis without myelopathy or radiculopathy, lumbar region; M48.07 Spinal stenosis, lumbosacral region
CPT/HCPCS: 72131; 73700

== ENCOUNTER 2023-11-01 08:15 | Outpatient (CLI) | payer MEDICARE, OTHER, SELFPAY ==
--- NOTE | 2023-11-01 08:31 | CT_ITS ---
WS: [id number] CT THORACIC SPINE TECHNIQUE: Contrast-enhanced CT of the thoracic spine with coronal and sagittal reformatted images. CLINICAL INFORMATION: OTHER INTERVERTEBRAL DISC DISORDERS,LUMBAR REGION COMPARISON: Prior lumbar CT 08/28/23 DLP: 828.[address] scans at [facility] use at least one of these dose optimization techniques: automated e xposure control; mA and/or kV adjustment per patient size (includes targeted exams where dose is matc hed to clinical indication); or iterative reconstruction. FINDINGS: Moderate thoracic kyphosis. No acute compression fractures. Chronic anterior wedging with endplate Sc hmorl's nodes in the midthoracic spine worse at T8-T10 with mild disc space narrowing. Hypertrophic c hanges. Prominent central disc osteophyte protrusion T11-T12 with moderate central canal stenosis. Indentatio n with posterior displacement and flattening of the thoracic cord. Mild bilateral bony foraminal narr owing. No other significant disc protrusions. Mild facet arthropathy lower thoracic spine. Chronic emphysematous changes in the partially visualized lungs. Fibrosis in the lung apices. Adrenal glands are normal. Normal GE junction. Mild LEFT bony foraminal narrowing T5-T6 IMPRESSION: 1. Central disc osteophyte protrusion at T11-T12 with indentation and posterior displacement of the thoracic cord with mild flattening. Moderate central canal stenosis at this level. 2. Mild bilateral T11-T12 bony foraminal narrowing. 3. Mild LEFT T5-T6 bony foraminal narrowing. 4. Mild facet arthropathy lower thoracic spine. 5. Moderate thoracic kyphosis. No acute compression fractures. 6. Mild chronic anterior wedging in the midthoracic spine at T8-T10.
--- NOTE | 2023-11-01 08:31 | CT_ITS ---
WS: [id number] CT LUMBAR SPINE TECHNIQUE: Contrast-enhanced CT of the lumbar spine with coronal and sagittal reformatted images. CLINICAL INFORMATION: OTHER INTERVERTEBRAL DISC DISORDERS, LUMBAR REGION COMPARISON: 08/28/2023 DLP: 828.[address] scans at [facility] use at least one of these dose optimization techniques: automated e xposure control; mA and/or kV adjustment per patient size (includes targeted exams where dose is matc hed to clinical indication); or iterative reconstruction. FINDINGS: Mild lumbar curve. No acute compression. Disc osteophyte protrusion T11-T12 with moderate central can al stenosis described on the thoracic spine report. L1-L2: Mild annular bulging with slight effacement of the ventral thecal sac. Slight retrolisthesis. Mild LEFT foraminal narrowing. Slight narrowing of the LEFT greater than RIGHT subarticular recess. L2-L3: Minimal annular bulging. Spinal canal is patent. Moderate facet arthropathy. Foramen are paten t. L3-L4: Broad-based central disc protrusion impinges the traversing RIGHT greater than LEFT L4 nerve r oots. Moderate facet arthropathy. Mild LEFT greater than RIGHT foraminal narrowing. Moderate facet ar thropathy. L4-L5: Shallow central disc protrusion. Impingement traversing L5 nerve roots RIGHT greater than LEFT . Moderate facet arthropathy. Moderate RIGHT and mild LEFT foraminal narrowing. Moderate facet arthro brandon. L5-S1: Central disc osteophyte protrusion. Slight contact traversing S1 nerve roots bilaterally. Mild to moderate facet arthropathy. Moderate RIGHT and mild LEFT foraminal narrowing. Visualized pelvic bony structures: Normal. Paravertebral soft tissues: Normal. Lung bases are well aerated. Adrenal glands are normal. Normal GE junction. IMPRESSION: 1. Mild lumbar curve. No acute compression. 2. Central disc osteophyte protrusion at T11-T12 with indentation of the thoracic cord and moderate central canal stenosis. This is described in the thoracic spine study. 3. Mild annular bulging L3-4 with mild central canal stenosis and slight impingement traversing L4 n erve roots. 4. RIGHT foraminal disc protrusion impinges the exiting L4 nerve root with moderate RIGHT foraminal narrowing. Recommend correlation RIGHT L4 nerve root symptoms. 5. Mild disc bulging L5-S1 with osteophytic ridging. Slight impingement traversing S1 nerve roots. M oderate RIGHT and mild LEFT foraminal narrowing at this level. 6. Small LEFT L3-4 foraminal protrusion with impingement on the exiting LEFT L3 nerve root.
--- NOTE | 2023-11-01 08:31 | IR_ITS ---
WS: [id number] MYELOGRAM THORACIC AND LUMBAR Fluoroscopic guided cervical myelogram CLINICAL INFORMATION: OTHER INTERVERTEBRAL DISC DISORDERS,LUMBAR REGION COMPARISON: None. TECHNIQUE: The procedure, including risks, benefits, and complications, were discussed with the patie nt who agreed to proceed. A timeout was performed to confirm correct patient, procedure, and site. Using sterile technique, the patient was prepped and draped in the usual sterile fashion. After admin istration of local anesthesia using 1% preservative-free lidocaine and using fluoroscopic guidance, a 22-gauge spinal needle was advanced into the subarachnoid space at the L3-L4 level. Subsequently 13 cc of Omnipaque 240 was administered into the thecal sac. The needle was removed and hemostasis was a chieved. Subsequently the table was tilted down and contrast flowed freely into the thoracic and cerv ical spine. Spot fluoroscopic images were obtained. FLUOROSCOPIC TIME: 3min [id number] Spot fluoroscopic images demonstrate 5 nonrib-bearing lumbar vertebral bodies. No high-grade stenosis in the lumbar spine. Moderate thoracic kyphosis with chronic anterior wedging in the midthoracic spi ne. Stimulator battery pack. Vascular calcification. No high-grade central canal block. IMPRESSION: 1. Uncomplicated lumbar and thoracic myelogram. 2. Please see CT myelogram report for additional detail.
== END 2023-11-01 08:16 | disposition home or self-care (01) ==
LOC: RAD 08:16
PROVIDERS: PCP Physician Assistant; Visit Provider Nurse Practitioner Family
DX: M51.86 Other intervertebral disc disorders, lumbar region (principal); M25.78 Osteophyte, vertebrae; M48.04 Spinal stenosis, thoracic region; M51.37 Other intervertebral disc degeneration, lumbosacral region; M48.07 Spinal stenosis, lumbosacral region; M47.814 Spondylosis without myelopathy or radiculopathy, thoracic region; M40.204 Unspecified kyphosis, thoracic region; M48.54XA Collapsed vertebra, not elsewhere classified, thoracic region, initial encounter for fracture
CPT/HCPCS: 62305; 72129; 72132; Q9966